=== PATIENT | female | born 1980 | race Caucasian/White ===

== ENCOUNTER 2018-03-14 11:43 | Inpatient (IN) | payer OTHER ==
[~2018-03-14] VITALS: Ht 166.4 cm; Wt 77.1 kg
[2018-03-16] MEDS ORDERED: PRENATAL TABLE1 EACH PO (21:10)
== END 2018-03-18 12:19 | disposition home or self-care (01) | DRG 807 ==
LOC: OB/GYN 11:43 → LDR 03-16 21:02 → OB/GYN 03-16 21:02
PROC: 10E0XZZ Delivery of Products of Conception, External Approach (ICD-10-PCS; principal; 2018-03-16)
PROC: 4A1HXCZ Monitoring of Products of Conception, Cardiac Rate, External Approach (ICD-10-PCS; 2018-03-16)
PROC: 0KQM0ZZ Repair Perineum Muscle, Open Approach (ICD-10-PCS; 2018-03-16)
PROC: 4A033R1 Measurement of Arterial Saturation, Peripheral, Percutaneous Approach (ICD-10-PCS; 2018-03-16)
DX: O70.1 Second degree perineal laceration during delivery (principal); Z37.0 Single live birth; Z3A.40 40 weeks gestation of pregnancy